=== PATIENT | male | born 1960 | race Caucasian/White ===

== ENCOUNTER 2017-06-06 09:26 | Outpatient (CLI) | payer OTHER | END 2017-06-06 09:27 | disposition home or self-care (01) | LOC: SC 09:26 | PROVIDERS: ATTEND Internal Medicine Pulmonary Disease | DX: R53.83 Other fatigue (principal); R06.83 Snoring; G47.8 Other sleep disorders | CPT/HCPCS: 99203; 99212 ==

== ENCOUNTER 2017-08-12 20:40 | Outpatient (CLI) | payer OTHER | END 2017-08-12 20:41 | disposition home or self-care (01) | LOC: SC 20:40 | PROVIDERS: ATTEND Internal Medicine Pulmonary Disease | DX: G47.33 Obstructive sleep apnea (adult) (pediatric) (principal); G47.61 Periodic limb movement disorder | CPT/HCPCS: 95810 ==

== ENCOUNTER 2017-09-07 09:00 | Outpatient (CLI) | payer OTHER | END 2017-09-07 09:01 | disposition home or self-care (01) | LOC: SC 09:00 | PROVIDERS: ATTEND Nurse Practitioner Family | DX: G47.33 Obstructive sleep apnea (adult) (pediatric) (principal); G47.61 Periodic limb movement disorder | CPT/HCPCS: 99212; 99214 ==

== ENCOUNTER 2017-10-24 10:13 | Outpatient (CLI) | payer OTHER | END 2017-10-24 10:14 | disposition home or self-care (01) | LOC: SC 10:13 | PROVIDERS: ATTEND Nurse Practitioner Family | DX: G47.33 Obstructive sleep apnea (adult) (pediatric) (principal) | CPT/HCPCS: 99212; 99214 ==

== ENCOUNTER 2017-11-23 08:42 | Outpatient (CLI) | payer OTHER | END 2017-11-23 08:43 | disposition home or self-care (01) | LOC: SC 08:42 | PROVIDERS: ATTEND Nurse Practitioner Family | DX: G47.33 Obstructive sleep apnea (adult) (pediatric) (principal); K21.9 Gastro-esophageal reflux disease without esophagitis; E11.9 Type 2 diabetes mellitus without complications | CPT/HCPCS: 99212; 99214 ==

== ENCOUNTER 2018-02-22 08:46 | Outpatient (CLI) | payer OTHER | END 2018-02-22 08:47 | disposition home or self-care (01) | LOC: SC 08:46 | PROVIDERS: ATTEND Nurse Practitioner Family | DX: G47.33 Obstructive sleep apnea (adult) (pediatric) (principal) | CPT/HCPCS: 99212; 99213 ==

== ENCOUNTER 2018-05-08 16:12 | Emergency (ER) | payer OTHER ==
[2018-05-08 16:46] LABS: BASOPHILS # (AUTO) 0.1 10^3/uL (0.0-0.1); BASOPHILS % (AUTO) 0.9 %; EOSINOPHILS # (AUTO) 0.1 10^3/uL (0.0-0.7); EOSINOPHILS % (AUTO) 1.5 %; LYMPHOCYTES # (AUTO) 2.6 10^3/uL (1.5-3.5); LYMPHOCYTES % (AUTO) 38.6 %; MEAN CORPUSCULAR HEMOGLOBIN 30.5 pg (27.0-31.0); MEAN CORPUSCULAR HGB CONC 34.3 g/dL (32.0-36.0); MEAN CORPUSCULAR VOLUME 88.7 fL (80.0-94.0); MEAN PLATELET VOLUME 9.7 fL (7.4-11.4); MONOCYTES # (AUTO) 0.6 10^3/uL (0.0-1.0); NEUTROPHILS # (AUTO) 3.4 10^3/uL (1.5-6.6); PLT - PLATELET COUNT 151 10^3/uL (130-450); RED BLOOD COUNT 4.94 10^6/uL (4.70-6.10); WHITE BLOOD COUNT 6.8 x10^3/uL (4.8-10.8)
[2018-05-08 16:58] LABS: ALBUMIN 4.6 g/dL (3.2-5.5); ALBUMIN/GLOBULIN RATIO 1.5 (1.0-2.2); BILIRUBIN,TOTAL 1.2 mg/dL (0.2-1.0); CALCIUM 8.9 mg/dL (8.5-10.3); CREATININE 0.9 mg/dL (0.6-1.2); TOTAL PROTEIN 7.6 g/dL (6.7-8.2)
--- NOTE | 2018-05-08 17:29 | ED Physician Documentation ---
PD HPI ABD PAIN - Stated complaint Stated Complaint: ABD PX - Chief complaint Chief Complaint: Abd Pain - History obtained from History obtained from: Patient - History of Present Illness Timing - onset: How many days ago (2) Timing - duration: Days (He has had some initially right flank pain a couple of days ago intermittently with abrupt worsening today that now radiates to the right lower abdomen and right testicle. He denies any swelling of the testicle. He is having nausea with some vomiting. He denies any diarrhea. He has not had any prior similar episodes. He denies injury.) Timing - details: Abrupt onset (today abruptly worse, with some intermittent right flank pain for couple days.) Quality: Aching, Sharp, Pain Location: RLQ Radiation: Other (right testicle), Right flank Improved by: No: Eating, Vomiting Worsened by: No: Eating, Moving, Position Associated symptoms: Nausea, Vomiting. No: Fever, Diarrhea, Constipation, Dysuria, Hematuria, Chest pain, Near syncope / syncope Similar symptoms before: Has not had sx before Recently seen: Not recently seen Review of Systems Constitutional: denies: Fever, Chills, Myalgias Nose: denies: Rhinorrhea / runny nose, Congestion Throat: denies: Sore throat Cardiac: denies: Chest pain / pressure Respiratory: denies: Cough GI: reports: Abdominal Pain, Nausea, Vomiting. denies: Constipation, Diarrhea, Bloody / black stool : denies: Dysuria, Frequency Skin: denies: Rash, Lesions Neurologic: denies: Generalized weakness, Focal weakness, Numbness, Near syncope, Altered mental status PD PAST MEDICAL HISTORY - Past Medical History Cardiovascular: None, Hypertension, High cholesterol Endocrine/Autoimmune: Type 2 diabetes GI: GERD Psych: None Musculoskeletal: None - Past Surgical History Past Surgical History: Yes General: Cholecystectomy Ortho: Other - Present Medications Home Medications: Ambulatory Orders Medication Instructions Recorded Confirmed Aspirin [Aspir 81] 81 mg PO DAILY 03/03/14 04/23/15 Atorvastatin Calcium 40 mg PO QPM 04/22/15 04/23/15 Esomeprazole Magnesium 40 mg PO QDAC 04/23/15 04/23/15 Lisinopril 20 mg PO DAILY 04/23/15 04/23/15 Loratadine 10 mg PO DAILY 04/23/15 04/23/15 Naproxen 375 mg PO BID #20 tablet 05/08/18 Ondansetron Odt [Zofran] 4 mg TL Q6H PRN #10 tablet 05/08/18 Oxycodone HCl/Acetaminophen 1 - 2 each PO Q6H PRN #14 tablet 05/08/18 [Percocet 5-325 mg Tablet] - Allergies Allergies/Adverse Reactions: Allergies Allergy/AdvReac Type Severity Reaction Status Date / Time No Known Drug Allergies Allergy Verified 05/08/18 16:27 - Social History Does the pt smoke?: No Smoking Status: Former smoker Does the pt drink ETOH?: Yes Does the pt have substance abuse?: No - POLST Patient has POLST: No PD ED PE NORMAL - Vitals Vital signs reviewed: Yes - General General: Alert and oriented X 3, Well developed/nourished, Other (appears uncomfortable, slightly pale. Not finding comfortable position. ) - Neck Neck: Supple, no meningeal sign, No adenopathy - Cardiac Cardiac: RRR, No murmur - Respiratory Respiratory: Clear bilaterally - Abdomen Abdomen: Normal bowel sounds, Soft, Non distended, No organomegaly, Other (some tenderness RLQ without guarding nor percussion, nor rebound tenderness. Some moderate right CVA tenderness. ) - Male Male : Other (right testicle has some tenderness, but no noted swelling of scrotum, nor inguinal hernia. ) - Rectal Rectal: Deferred - Derm Derm: Warm and dry. No: Normal color (pale) - Extremities Extremities: Normal ROM s pain, No edema, No calf tenderness / cord - Neuro Neuro: Alert and oriented X 3, No motor deficit, Normal speech Results - Vitals Vitals: Oxygen O2 Source Room air - Labs Labs: Laboratory Tests 05/08/18 05/08/18 05/08/18 16:40 16:40 17:30 WBC 6.8 RBC 4.94 Hgb 15.0 Hct 43.8 MCV 88.7 MCH 30.5 MCHC 34.3 RDW 13.0 Plt Count 151 MPV 9.7 Neut # (Auto) 3.4 Lymph # (Auto) 2.6 [place] # (Auto) 0.6 Eos # (Auto) 0.1 Baso # (Auto) 0.1 Absolute Nucleated RBC 0.00 Nucleated RBC % 0.1 Sodium 138 Potassium 3.5 Chloride 102 Carbon Dioxide 26 Anion Gap 10.0 BUN 15 Creatinine 0.9 Estimated GFR (MDRD) 87 L Glucose 156 H Calcium 8.9 Total Bilirubin 1.2 H AST 27 ALT 47 Alkaline Phosphatase 101 Total Protein 7.6 Albumin 4.6 Globulin 3.0 Albumin/Globulin Ratio 1.5 Lipase 48 Urine Color YELLOW Urine Clarity CLEAR Urine pH 5.5 Ur Specific [place] >=1.030 H Urine Protein NEGATIVE Urine Glucose (UA) NEGATIVE Urine Ketones NEGATIVE Urine Occult Blood LARGE H Urine Nitrite NEGATIVE Urine Bilirubin NEGATIVE Urine Urobilinogen 0.2 (NORMAL) Ur Leukocyte Esterase NEGATIVE Urine RBC TNTC H Urine WBC 0-3 Ur Squamous Epith Cells NONE SEEN Urine Bacteria None Seen Ur Microscopic Review INDICATED Urine Culture Comments NOT INDICATED - Rads (name of study) KUB CT Radiology: Prelim report reviewed (small stone distal ureter or more likely just at top of bladder - passing/just passed. ), EMP read contemporaneously PD MEDICAL DECISION MAKING - ED course Complexity details: re-evaluated patient (he is feeling much better here with just mild waves of pain still. CT showing stone likely into upper bladder, so looks to be passed/about to fully pass. ), considered differential, d/w patient Departure - Departure Disposition: Home, Self Care Clinical Impression: Ureterolithiasis Abdominal pain Qualifiers: Abdominal location: right lower quadrant Qualified Code(s): R10.31 - Right lower quadrant pain Condition: Stable Record reviewed to determine appropriate education?: Yes Instructions: ED Stone Renal W Colic Follow-Up: KRISTA CRUZ [Primary Care Provider] - Prescriptions: Naproxen 375 mg PO BID #20 tablet Ondansetron Odt [Zofran] 4 mg TL Q6H PRN #10 tablet PRN Reason: Nausea / Vomiting Oxycodone HCl/Acetaminophen [Percocet 5-325 mg Tablet] 1 - 2 each PO Q6H PRN #14 tablet PRN Reason: pain Comments: The CT scan showed the stone either at the very end of the ureter or in the top of the bladder already passed. That was the impression of the radiologist as well. He should be feeling better with just some mild pains from the inflammation and spasming still. This should decrease and improve overnight. Naproxen or ibuprofen twice daily for the next several days. Ondansetron if needed for nausea. Add pain medicine if needed. Recheck if not improved over the next couple of days and return sooner if worse again. Discharge Date/Time: 05/08/18 19:45
[2018-05-08 17:35] LABS: BILIRUBIN,URINE NEGATIVE (NEGATIVE); GLUCOSE, URINE (UA) NEGATIVE (NEGATIVE); KETONES,URINE (UA) NEGATIVE (NEGATIVE); LEUKOCYTE ESTERASE, URINE NEGATIVE (NEGATIVE); NITRITE,URINE NEGATIVE (NEGATIVE); OCCULT BLOOD,URINE LARGE (NEGATIVE); PH,URINE 5.5 PH (5.0-7.5); PROTEIN,URINE NEGATIVE (NEGATIVE); UROBILINOGEN,URINE 0.2 (NORMAL) E.U./dL (NORMAL)
[2018-05-08] MEDS ORDERED: ONDANSETRON 4 MG/2 ML VIAL IVP STA (17:40)
[2018-05-08] MEDS ORDERED: KETOROLAC 60 MG/2 ML VIAL IVP STA (17:40)
[2018-05-08] MEDS ORDERED: SODIUM CHLORIDE 0.9% 1,000 ML IV ONE (17:40)
[2018-05-08] MEDS ORDERED: MORPHINE 10 MG/ML VIAL IVP STA ×2 (17:40→19:05)
[2018-05-08 17:42] LABS: CLARITY,URINE CLEAR (CLEAR)
[2018-05-08 17:43] LABS: BACTERIA,URINE None Seen /HPF (None Seen); RBC,URINE TNTC /HPF (0-5); SQUAMOUS EPITHELIAL CELL,UR NONE SEEN (<= Few)
--- NOTE | 2018-05-08 18:48 | CT Report ---
Reason: right abd/flank pain 2 days, worse today Procedure Date: 05/08/2018 Accession Number: [id number] / [id number] Procedure: CT - KUB CPT Code: FULL RESULT: EXAM: CT ABDOMEN AND PELVIS (CT KUB) EXAM DATE: 05/08/2018 06:30 PM. CLINICAL HISTORY: Right abd/flank pain 2 days, worse today. COMPARISONS: ABDOMEN/PELVIS W/O 04/22/2015 8:00 AM. TECHNIQUE: Routine axial helical CT imaging was performed through the abdomen and pelvis without IV contrast. Reconstructions: Coronal and sagittal. In accordance with CT protocol optimization, one or more of the following dose reduction techniques were utilized for this exam: automated exposure control, adjustment of mA and/or KV based on patient size, or use of iterative reconstructive technique. FINDINGS: Lung Bases: Unremarkable. Right Kidney/Ureter: Moderate right hydronephrosis and hydroureter. 4 mm calculus in the posterior right side of the urinary bladder, which may be in the right ureterovesicular junction or recently passed. Left Kidney/Ureter: No stones, hydronephrosis, or hydroureter. No perinephric fat stranding. Other Solid Organs: Noncontrast images of the solid organs are grossly unremarkable. Gallbladder/Bile Ducts: Postoperative changes of cholecystectomy. No biliary dilatation. Peritoneal Cavity: No free fluid, free air or shena adenopathy. Bowel is grossly unremarkable. The appendix is normal. Pelvic Organs: 4 mm calculus, which may be in the urinary bladder or the right ureterovesicular function. Vasculature: Unremarkable. Other: None. IMPRESSION: Moderate right hydronephrosis and hydroureter, with a 4 mm calculus either at the right ureterovesicular junction or recently passed into the urinary bladder. No upper tract calculi are seen. RADIA
[2018-05-08] MEDS ORDERED: DEXAMETHASONE 10 MG/ML VIAL IVP STA (19:05)
[2018-05-08 19:18] VITALS: BP 118/81
== END 2018-05-08 19:45 | disposition home or self-care (01) ==
LOC: ED 16:12
DX: N20.1 Calculus of ureter (principal); I10 Essential (primary) hypertension; E78.00 Pure hypercholesterolemia, unspecified; E11.9 Type 2 diabetes mellitus without complications; Z79.82 Long term (current) use of aspirin; Z87.891 Personal history of nicotine dependence
CPT/HCPCS: 36415; 74176; 80053; 81001; 81003; 83690; 85025; 87086; 96361; 96374; 96375; 99283; 99284

== ENCOUNTER 2019-06-15 07:16 | Emergency (ER) | payer OTHER ==
[2019-06-15] MEDS ORDERED: oxyCODONE 5 MG TABLET PO STA (07:41)
[2019-06-15] MEDS ORDERED: CYCLOBENZAPRINE 10 MG TABLET PO STA (07:41)
[2019-06-15] MEDS ORDERED: CHERRY SYRUP 10 ML UDC PO ONE (07:41)
[2019-06-15] MEDS ORDERED: DEXAMETHASONE 10 MG/ML VIAL PO STA (07:41)
--- NOTE | 2019-06-15 07:44 | ED Physician Documentation ---
PD HPI BACK PAIN - Stated complaint Stated Complaint: BACK PX - Chief complaint Chief Complaint: Ext Problem - History obtained from History obtained from: Patient - History of Present Illness Timing - onset: How many days ago (3-4) Timing - duration: Days (3-4) Timing - details: Gradual onset Pain level max: 0 Pain level now: 0 Location: Lower, Right, Left Quality: Pain, Spasm, Similar to prior episodes Associated symptoms: No: Fever, Weakness, Numbness, Incontinent of urine, Unable to urinate, Hematuria, Incontinent of stool Improves with: Rest Worsened by: Movement, Lifting Contributing factors: Lifting (started after moving a treadmill) Similar symptoms before: Other (has had issues on and off for years. states flex eril normally helps) Recently seen: Not recently seen Review of Systems Constitutional: denies: Fever, Chills Cardiac: denies: Chest pain / pressure Respiratory: denies: Cough GI: denies: Abdominal Pain, Nausea, Vomiting Skin: denies: Rash Musculoskeletal: denies: Neck pain Neurologic: denies: Headache PD PAST MEDICAL HISTORY - Past Medical History Cardiovascular: None, Hypertension, High cholesterol Endocrine/Autoimmune: Type 2 diabetes GI: GERD Psych: None Musculoskeletal: None - Past Surgical History Past Surgical History: Yes General: Cholecystectomy Ortho: Other - Present Medications Home Medications: Ambulatory Orders Medication Instructions Recorded Confirmed Aspirin [Aspir 81] 81 mg PO DAILY 03/03/14 04/23/15 Atorvastatin Calcium 40 mg PO QPM 04/22/15 04/23/15 Lisinopril 20 mg PO DAILY 04/23/15 04/23/15 Loratadine 10 mg PO DAILY 04/23/15 04/23/15 Cyclobenzaprine [Flexeril] 10 mg PO TID PRN #20 tablet 06/15/19 Meloxicam 7.5 mg PO 06/15/19 Metformin HCl [Metformin HCl ER] 06/15/19 Omeprazole 06/15/19 Oxycodone HCl/Acetaminophen 1 - 2 each PO Q6H PRN #10 tablet 06/15/19 [Percocet 5-325 mg Tablet] - Allergies Allergies/Adverse Reactions: Allergies Allergy/AdvReac Type Severity Reaction Status Date / Time No Known Drug Allergies Allergy Verified 06/15/19 07:27 - Social History Does the pt smoke?: No Smoking Status: Former smoker Does the pt drink ETOH?: Yes Does the pt have substance abuse?: No - Immunizations Immunizations are current?: Yes - POLST Patient has POLST: No PD ED PE NORMAL - Vitals Vital signs reviewed: Yes - General General: Alert and oriented X 3, No acute distress - HEENT HEENT: Moist mucous membranes - Neck Neck: Supple, no meningeal sign - Cardiac Cardiac: Strong equal pulses - Respiratory Respiratory: No respiratory distress, Clear bilaterally - Abdomen Abdomen: Soft, Non tender, Non distended - Back Back: No spinal TTP, Other (Paraspinal spasm of the lumbar. No midline tenderness to palpation or percussion.) - Derm Derm: Warm and dry - Extremities Extremities: Other (Normal bilateral lower extremity patellar and ankle jerk reflexes. Normal great toe extension bilaterally. no saddle anesthesia) - Neuro Neuro: Alert and oriented X 3, No motor deficit, No sensory deficit Results - Vitals Vitals: Vital Signs - 24 hr 06/15/19 06/15/19 07:23 09:11 Temperature 36.7 C Heart Rate 77 67 Respiratory 18 18 Rate Blood Pressure 190/90 H 123/82 H O2 Saturation 99 98 Oxygen O2 Source Room air PD MEDICAL DECISION MAKING - ED course Complexity details: re-evaluated patient, considered differential (No cauda equina, no spinal epidural abscess, no fracture, no aortic dissection or evidence of aneursym rupture), d/w patient, d/w family ED course: Patient with back spasm. Symptoms improved in the emergency department. No evidence of fracture, epidural abscess. No evidence of cauda equina. We will continue supportive care and have him follow-up with his doctor. Patient counseled regarding signs and symptoms for which I believe and urgent re- evaluation would be necessary. Patient with good understanding of and agreement to plan and is comfortable going home at this time This document was made in part using voice recognition software. While efforts are made to proofread this document, sound alike and grammatical errors may occur. Departure - Departure Disposition: 01 Home, Self Care Clinical Impression: Back spasm Condition: Good Instructions: ED Spasm Back No Trauma Follow-Up: your,doctor in 1 week [Other] Prescriptions: Cyclobenzaprine [Flexeril] 10 mg PO TID PRN #20 tablet PRN Reason: Spasms Oxycodone HCl/Acetaminophen [Percocet 5-325 mg Tablet] 1 - 2 each PO Q6H PRN #10 tablet PRN Reason: pain Comments: Return if you worsen. Follow up with your doctor for further care. This should improve over the next few days. Do not drink alcohol or drive while on narcotic pain medicine. Note that many narcotic pain relievers also contain tylenol/acetaminophen. Please ensure that your total dose of acetaminophen from all sources does not exceed 3 grams (3000mg) per day. You may constipated on this medication, take a stool softener such as "Colace" twice a day while you are on it. Also recommend a [id number] laxative such as senna or MiraLAX any day that you do not have a bowel movement. If you received narcotic pain medication in the emergency department, do not drive or operate machinery for the next 24 hours. Forms: Activity restrictions Discharge Date/Time: 06/15/19 09:15
[2019-06-15] MEDS ORDERED: diazePAM INJ 5 MG/ML SYRINGE IM STA (08:31)
[2019-06-15] MEDS ORDERED: ONDANSETRON ODT 4 MG TABLET TL STA (08:32)
[2019-06-15 09:12] VITALS: BP 123/82
== END 2019-06-15 09:15 | disposition home or self-care (01) ==
LOC: ED 07:16
DX: M62.830 Muscle spasm of back (principal); I10 Essential (primary) hypertension; E11.9 Type 2 diabetes mellitus without complications; Z79.84 Long term (current) use of oral hypoglycemic drugs; Z87.891 Personal history of nicotine dependence
CPT/HCPCS: 96372; 99283; 99284; A9270; Q0162

== ENCOUNTER 2020-05-06 08:21 | Emergency (ER) | payer OTHER ==
[2020-05-06 09:23] LABS: BASOPHILS % (AUTO) 0.4 %; EOSINOPHILS # (AUTO) 0.2 10^3/uL (0.0-0.7); HGB - HEMOGLOBIN 16.3 g/dL (14.0-18.0); LYMPHOCYTES % (AUTO) 24.6 %; MEAN CORPUSCULAR HEMOGLOBIN 30.8 pg (27.0-31.0); MEAN CORPUSCULAR HGB CONC 34.2 g/dL (32.0-36.0); MEAN PLATELET VOLUME 11.6 fL (7.4-11.4); MONOCYTES # (AUTO) 0.8 10^3/uL (0.0-1.0); MONOCYTES % (AUTO) 9.6 %; NEUTROPHILS # (AUTO) 5.1 10^3/uL (1.5-6.6); NEUTROPHILS % (AUTO) 63.2 %; PLT - PLATELET COUNT 152 10^3/uL (130-450); RED BLOOD COUNT 5.29 10^6/uL (4.70-6.10); RED CELL DISTRIBUTION WIDTH 12.3 % (12.0-15.0); WHITE BLOOD COUNT 8.1 x10^3/uL (4.8-10.8)
[2020-05-06 09:39] LABS: BILIRUBIN,URINE NEGATIVE (NEGATIVE); CLARITY,URINE CLEAR (CLEAR); GLUCOSE, URINE (UA) NEGATIVE (NEGATIVE); KETONES,URINE (UA) NEGATIVE (NEGATIVE); LEUKOCYTE ESTERASE, URINE NEGATIVE (NEGATIVE); NITRITE,URINE NEGATIVE (NEGATIVE); OCCULT BLOOD,URINE NEGATIVE (NEGATIVE); PROTEIN,URINE NEGATIVE (NEGATIVE); UROBILINOGEN,URINE 0.2 (NORMAL) E.U./dL (NORMAL)
[2020-05-06 09:39] LABS: ALBUMIN 4.2 g/dL (3.2-5.5); ALBUMIN/GLOBULIN RATIO 1.4 (1.0-2.2); BILIRUBIN,TOTAL 1.2 mg/dL (0.2-1.0); CALCIUM 9.3 mg/dL (8.5-10.3); CREATININE 0.9 mg/dL (0.6-1.2); TOTAL PROTEIN 7.2 g/dL (6.7-8.2)
[2020-05-06] MEDS ORDERED: HYDROmorphone 1 MG/ML CARPUJECT IVP STA ×2 (11:09→13:01)
[2020-05-06] MEDS ORDERED: KETOROLAC 30 MG/ML VIAL IVP STA (11:09)
--- NOTE | 2020-05-06 11:12 | ED Physician Documentation ---
History of Present Illness - Stated complaint Stated Complaint: LOWER BACK PX - Chief complaint Chief Complaint: Back Pain - History obtained from History obtained from: Patient - Additonal information Additional information: Pt comes to the emergency department complaining of low back pain that started spontaneously 2 days ago. 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 The patient states that he has not had any fevers or chills. No abdominal pain. No blood in his urine or dysuria. The patient states he began to notice that something "did not feel right" when he woke up from sleep his sleep on Tuesday morning. He had gone to bed the night before feeling fine. He states that the pain steadily increased and that he has tried taking ibuprofen, Tylenol, and muscle relaxers at home with no help or improvement. Patient denies any direct injury. No heavy lifting or other heavy work. No history of back issues. He has had kidney stones before. No other complaints at this time. Review of Systems Ten Systems: 10 systems reviewed and negative Constitutional: reports: Reviewed and negative Eyes: reports: Reviewed and negative Ears: reports: Reviewed and negative Nose: reports: Reviewed and negative Throat: reports: Reviewed and negative Cardiac: reports: Reviewed and negative Respiratory: reports: Reviewed and negative GI: reports: Reviewed and negative : reports: Reviewed and negative Skin: reports: Reviewed and negative Musculoskeletal: reports: Back pain Neurologic: reports: Other (No loss of bowel or bladder control). denies: Focal weakness, Numbness Psychiatric: reports: Reviewed and negative Endocrine: reports: Reviewed and negative Immunocompromised: reports: Reviewed and negative PD PAST MEDICAL HISTORY - Past Medical History Cardiovascular: None, Hypertension, High cholesterol Endocrine/Autoimmune: Type 2 diabetes GI: GERD Psych: None Musculoskeletal: None - Past Surgical History Past Surgical History: Yes General: Cholecystectomy Ortho: Other - Present Medications Home Medications: Ambulatory Orders Medication Instructions Recorded Confirmed Aspirin [Aspir 81] 81 mg PO DAILY 03/03/14 04/23/15 Atorvastatin Calcium 40 mg PO QPM 04/22/15 04/23/15 Lisinopril 20 mg PO DAILY 04/23/15 04/23/15 Loratadine 10 mg PO DAILY 04/23/15 04/23/15 Cyclobenzaprine [Flexeril] 10 mg PO TID PRN #20 tablet 06/15/19 Meloxicam 7.5 mg PO 06/15/19 Metformin HCl [Metformin HCl ER] 06/15/19 Omeprazole 06/15/19 Oxycodone HCl/Acetaminophen 1 - 2 each PO Q6H PRN #10 tablet 06/15/19 [Percocet 5-325 mg Tablet] HYDROcod/ACETAM 5/325 [[place] 5/325] 1 - 2 ea PO Q4HR PRN #15 tablet 05/06/20 - Allergies Allergies/Adverse Reactions: Allergies Allergy/AdvReac Type Severity Reaction Status Date / Time No Known Drug Allergies Allergy Verified 05/06/20 09:00 - Social History Does the pt smoke?: No Smoking Status: Former smoker Does the pt drink ETOH?: Yes ETOH Use: Wine, Beer Does the pt have substance abuse?: No - Immunizations Immunizations are current?: Yes - POLST Patient has POLST: No PD ED PE NORMAL - Vitals Vital signs reviewed: Yes - General General: Alert and oriented X 3, No acute distress, Other (Pt appears generally comfortable when not moving.) - HEENT HEENT: Atraumatic, PERRL, EOMI, Moist mucous membranes - Neck Neck: Supple, no meningeal sign, No bony TTP - Cardiac Cardiac: RRR, No murmur, Strong equal pulses - Respiratory Respiratory: No respiratory distress, Clear bilaterally - Abdomen Abdomen: Soft, Non tender, Non distended - Back Back: No CVA TTP, No spinal TTP, Other (PT is able to move his back (change p osition, sit up for exam, etc), but exhibits slow movement and pain with the movement.) - Derm Derm: Normal color, Warm and dry, No rash - Extremities Extremities: No deformity, No edema, No calf tenderness / cord - Neuro Neuro: Alert and oriented X 3, entry level buyer 2-12 intact, No motor deficit, No sensory deficit, Normal speech - Psych Psych: Normal mood, Normal affect Results - Vitals Vitals: Vital Signs - 24 hr 05/06/20 05/06/20 05/06/20 08:52 09:28 10:47 Temperature 36.9 C 36.4 C L Heart Rate 83 83 71 Respiratory 18 16 18 Rate Blood Pressure 132/90 H 131/88 H 141/109 H O2 Saturation 99 97 97 05/06/20 13:08 Temperature 36.4 C L Heart Rate 78 Respiratory 16 Rate Blood Pressure 133/82 H O2 Saturation 96 Oxygen O2 Source Room air - Labs Labs: Laboratory Tests 05/06/20 05/06/20 05/06/20 09:17 09:17 09:30 WBC 8.1 RBC 5.29 Hgb 16.3 Hct 47.6 MCV 90.0 MCH 30.8 MCHC 34.2 RDW 12.3 Plt Count 152 MPV 11.6 H Neut # (Auto) 5.1 Lymph # (Auto) 2.0 [place] # (Auto) 0.8 Eos # (Auto) 0.2 Baso # (Auto) 0.0 Absolute Nucleated RBC 0.00 Nucleated RBC % 0.0 Sodium 138 Potassium 3.8 Chloride 101 Carbon Dioxide 28 Anion Gap 9.0 BUN 16 Creatinine 0.9 Estimated GFR (MDRD) 86 L Glucose 153 H Calcium 9.3 Total Bilirubin 1.2 H AST 25 ALT 43 Alkaline Phosphatase 93 Total Protein 7.2 Albumin 4.2 Globulin 3.0 Albumin/Globulin Ratio 1.4 Lipase 62 H Urine Color YELLOW Urine Clarity CLEAR Urine pH 6.0 Ur Specific [place] 1.020 Urine Protein NEGATIVE Urine Glucose (UA) NEGATIVE Urine Ketones NEGATIVE Urine Occult Blood NEGATIVE Urine Nitrite NEGATIVE Urine Bilirubin NEGATIVE Urine Urobilinogen 0.2 (NORMAL) Ur Leukocyte Esterase NEGATIVE Ur Microscopic Review NOT INDICATED Urine Culture Comments NOT INDICATED - Rads (name of study) CT abd/pelvis Radiology: Final report received, EMP read indepedently, See rad report (neg) PD MEDICAL DECISION MAKING - ED course Complexity details: reviewed results, re-evaluated patient, considered differential, d/w patient ED course: PT was treated symptomatically with Toradol and Dilaudid. He had a history of stones, and onset of pain without trigger, so he was worked up with labs and CT. These were all negative. The pt was feeling better after symptomatic intervention, and we discussed taking a couple of days off work to allow his back to settle down. We have discussed symptomatic management at home, as well as the need to see his PCP and discuss MRI if his pain is not significantly improved after the next couple weeks. Departure - Departure Disposition: 01 Home, Self Care Clinical Impression: Acute lumbar myofascial strain Qualifiers: Encounter type: initial encounter Qualified Code(s): S39.012A - Strain of muscle, fascia and tendon of lower back, initial encounter Condition: Stable Instructions: ED Low Back Pain Injury Prescriptions: HYDROcod/ACETAM 5/325 [[place] 5/325] 1 - 2 ea PO Q4HR PRN #15 tablet PRN Reason: Pain Comments: This, urinalysis, and CT scan all look very good. The mechanical nature of your pain indicates a musculoskeletal source as opposed to something coming from your deeper organs or structures. It is not clear exactly what has caused this, although it is not uncommon for people with physical jobs to have silent overuse injuries that suddenly flareup. Please take the pain medication as needed. You have been given a note to have the rest of this week off of work, unless she is feeling better. You may rest but should also make sure to get up and move around and do some stretching. You will most likely be able to stretch better if heat and massage are applied first. If you are not feeling any better in the next couple of weeks, you will need to follow-up with your primary care physician to discuss having an MRI of your low spine done. If you lose control of your bowels or bladder, you will need to return to the emergency department immediately. Forms: Activity restrictions Discharge Date/Time: 05/06/20 13:23
[2020-05-06] MEDS ORDERED: IOVERSOL 320 100 ML VIAL IVP ONE ×2 (11:26→12:57)
--- NOTE | 2020-05-06 12:20 | CT Report ---
PROCEDURE: Abdomen/Pelvis W INDICATIONS: back pain CONTRAST: IV CONTRAST: Optiray 320 ml: 100 PO CONTRAST: *NO PO CONTRAST TECHNIQUE: After the administration of intravenous contrast, 5 mm thick sections acquired from the diaphragms to the symphysis. 5 mm thick coronal and sagittal reformats were acquired. For radiation dose reducti on, the following was used: automated exposure control, adjustment of mA and/or kV according to renetta ent size. COMPARISON: 05/08/2018 CT abdomen and pelvis FINDINGS: Image quality: Excellent. ABDOMEN: Lung bases: Nonspecific groundglass airspace opacity in the posterior right lung base along with min imal posterior dependent atelectasis bilaterally. Solid organs: Diffuse hepatic steatosis. Spleen is unremarkable. Gallbladder and has been removed. Bi liary system is non dilated. Pancreas enhances normally. No adrenal nodules. Kidneys demonstrate n ormal size and enhancement, without hydronephrosis. Peritoneum and bowel: Bowel loops demonstrate normal wall thickness and caliber. No free fluid or a ir. Nodes and vessels: No retroperitoneal or mesenteric adenopathy by size criteria. Aorta and inferior vena cava are normal in size. Miscellaneous: No ventral hernias. PELVIS: Genitourinary: Bladder wall thickness is normal. Miscellaneous: No inguinal hernias or adenopathy. Bones: No suspicious bony lesions. No vertebral body compression fractures. IMPRESSION: No acute abnormality or finding to explain back pain. Nonspecific groundglass opacity in the right lung base. This could be atelectatic, however, infection would appear similar and will need clinical exclusion. Reviewed by: Charanjit Ramirez MD on 05/06/2020 12:19 PM PST Approved by: Charanjit Ramirez MD on 05/06/2020 12:19 PM PST Station ID: [id number]
[2020-05-06 13:10] VITALS: BP 133/82
== END 2020-05-06 13:23 | disposition home or self-care (01) ==
LOC: ED 08:21
DX: S39.012A Strain of muscle, fascia and tendon of lower back, initial encounter (principal); X50.3XXA Overexertion from repetitive movements, initial encounter; Y99.0 Civilian activity done for income or pay; Z87.442 Personal history of urinary calculi; I10 Essential (primary) hypertension; E11.9 Type 2 diabetes mellitus without complications; Z79.84 Long term (current) use of oral hypoglycemic drugs; Z79.82 Long term (current) use of aspirin; Z87.891 Personal history of nicotine dependence
CPT/HCPCS: 36415; 74177; 80053; 81003; 83690; 85025; 96374; 96376; 99284; J1170; Q9967; 81001; 87086

== ENCOUNTER 2020-05-07 09:17 | Emergency (ER) | payer OTHER ==
[2020-05-07] MEDS ORDERED: DEXAMETHASONE 10 MG/ML VIAL IVP STA (10:41)
[2020-05-07] MEDS ORDERED: KETOROLAC 30 MG/ML VIAL IVP STA (10:41)
[2020-05-07] MEDS ORDERED: SODIUM CHLORIDE 0.9% 1,000 ML IV STA ×2 (10:41→12:34)
--- NOTE | 2020-05-07 10:48 | ED Physician Documentation ---
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 He has been in to the ED yesterday and had appropriate imaging without findings. He indicates this morning the pain is worse. He did not peanut picker the script. He has reduced his fluid intake in order to not have to get up to the bathroom. Review of Systems Constitutional: denies: Fever Eyes: denies: Decreased vision Ears: denies: Ear pain Nose: denies: Congestion Throat: denies: Sore throat Cardiac: denies: Chest pain / pressure, Palpitations Respiratory: denies: Dyspnea, Cough GI: denies: Abdominal Pain, Abdominal Swelling, Nausea, Vomiting : denies: Dysuria, Frequency PD PAST MEDICAL HISTORY - Past Medical History Past Medical History: Yes Cardiovascular: None, Hypertension, High cholesterol Endocrine/Autoimmune: Type 2 diabetes GI: GERD Psych: None Musculoskeletal: None - Past Surgical History Past Surgical History: Yes General: Cholecystectomy Ortho: Other - Present Medications Home Medications: Ambulatory Orders Medication Instructions Recorded Confirmed Aspirin [Aspir 81] 81 mg PO DAILY 03/03/14 04/23/15 Atorvastatin Calcium 40 mg PO QPM 04/22/15 04/23/15 Lisinopril 20 mg PO DAILY 04/23/15 04/23/15 Loratadine 10 mg PO DAILY 04/23/15 04/23/15 Cyclobenzaprine [Flexeril] 10 mg PO TID PRN #20 tablet 06/15/19 Meloxicam 7.5 mg PO 06/15/19 Metformin HCl [Metformin HCl ER] 06/15/19 Omeprazole 06/15/19 Oxycodone HCl/Acetaminophen 1 - 2 each PO Q6H PRN #10 tablet 06/15/19 [Percocet 5-325 mg Tablet] HYDROcod/ACETAM 5/325 [[place] 5/325] 1 - 2 ea PO Q4HR PRN #15 tablet 05/06/20 Cyclobenzaprine [Flexeril] 10 mg PO TID PRN #20 tablet 05/07/20 - Allergies Allergies/Adverse Reactions: Allergies Allergy/AdvReac Type Severity Reaction Status Date / Time No Known Drug Allergies Allergy Verified 05/07/20 09:30 - Social History Does the pt smoke?: No Smoking Status: Never smoker Does the pt drink ETOH?: Yes Does the pt have substance abuse?: No - Immunizations Immunizations are current?: Yes - POLST Patient has POLST: No PD ED PE NORMAL - Vitals Vital signs reviewed: Yes (hypertensive ) - General General: Alert and oriented X 3, No acute distress, Well developed/nourished - HEENT HEENT: Atraumatic, PERRL, EOMI - Neck Neck: Supple, no meningeal sign, No bony TTP - Cardiac Cardiac: RRR, No murmur - Respiratory Respiratory: No respiratory distress, Clear bilaterally - Abdomen Abdomen: Normal bowel sounds, Soft, Non tender, Non distended, No organomegaly - Back Back: No CVA TTP, No spinal TTP, Other (There is tenderness to the left lower lumbar area at the site of the pain the patient is complaining of. ) - Derm Derm: Normal color, Warm and dry, No rash - Extremities Extremities: No deformity, No edema - Neuro Neuro: Alert and oriented X 3, treasury manager 2-12 intact, No motor deficit, No sensory deficit, Normal speech Eye Opening: Spontaneous Motor: Obeys Commands Verbal: Oriented GCS Score: 15 - Psych Psych: Normal mood, Normal affect Results - Vitals Vitals: Vital Signs - 24 hr 05/07/20 05/07/20 05/07/20 09:27 09:47 11:34 Temperature 36.8 C 37.1 C Heart Rate 91 89 79 Respiratory 17 18 18 Rate Blood Pressure 132/90 H 120/87 H 124/82 H O2 Saturation 96 96 96 05/07/20 05/07/20 05/07/20 13:04 13:30 14:19 Temperature 36.4 C L 36.1 C L Heart Rate 84 91 Respiratory 16 16 Rate Blood Pressure 123/79 129/83 H O2 Saturation 96 94 Oxygen O2 Source Room air - Labs Labs: Laboratory Tests 05/07/20 05/07/20 05/07/20 10:50 10:50 13:00 WBC 8.2 RBC 5.40 Hgb 16.6 Hct 48.8 MCV 90.4 MCH 30.7 MCHC 34.0 RDW 12.4 Plt Count 157 MPV 11.7 H Neut # (Auto) 5.3 Lymph # (Auto) 2.1 [place] # (Auto) 0.6 Eos # (Auto) 0.1 Baso # (Auto) 0.0 Absolute Nucleated RBC 0.00 Nucleated RBC % 0.0 Sodium 141 Potassium 3.9 Chloride 99 L Carbon Dioxide 27 Anion Gap 15.0 H BUN 17 Creatinine 0.9 Estimated GFR (MDRD) 86 L Glucose 135 H Calcium 9.5 Total Bilirubin 1.8 H AST 26 ALT 46 Alkaline Phosphatase 97 Total Protein 7.8 Albumin 4.5 Globulin 3.3 Albumin/Globulin Ratio 1.4 Lipase 56 H Urine Color YELLOW Urine Clarity CLEAR Urine pH 6.5 Ur Specific [place] 1.015 Urine Protein NEGATIVE Urine Glucose (UA) NEGATIVE Urine Ketones NEGATIVE Urine Occult Blood NEGATIVE Urine Nitrite NEGATIVE Urine Bilirubin NEGATIVE Urine Urobilinogen 0.2 (NORMAL) Ur Leukocyte Esterase NEGATIVE Ur Microscopic Review NOT INDICATED Urine Culture Comments NOT INDICATED Procedures - IVC sono (time) 1035 Bedside IVC sono: IVC measures (cm) (0.82), Dehydration (est 2 liter deficit) PD MEDICAL DECISION MAKING - ED course Complexity details: reviewed old records, reviewed results, re-evaluated patient, considered differential, d/w patient, d/w family ED course: 59-year-old male with lumbar muscle spasm has had poor pain relief and continues to have pain. He did not fill his prescription for his pain medication and has come back to the emergency department. We found today that he was a bit dehydrated he does have diabetes and I suspect this is the reason for his dehydration. He was administered saline 2 L and dexamethasone 10 mg as well as Toradol. He had improvement in his pain but not the dramatic improvement he had yesterday. He subsequently administered Dilaudid and Zofran and he has pain medication prescription from yesterday I will add in a muscle relaxant and asked him to discontinue the use of the heating pack. Departure - Departure Disposition: Home, Self Care Clinical Impression: Back spasm, Dehydration Instructions: ED Spasm Back No Trauma, ED Dehydration Follow-Up: JANEEN Rashid [Provider Group] Prescriptions: Cyclobenzaprine [Flexeril] 10 mg PO TID PRN #20 tablet PRN Reason: Spasms Discharge Date/Time: 05/07/20 14:30
[2020-05-07 11:04] LABS: BASOPHILS % (AUTO) 0.4 %; EOSINOPHILS # (AUTO) 0.1 10^3/uL (0.0-0.7); EOSINOPHILS % (AUTO) 1.3 %; HGB - HEMOGLOBIN 16.6 g/dL (14.0-18.0); LYMPHOCYTES # (AUTO) 2.1 10^3/uL (1.5-3.5); LYMPHOCYTES % (AUTO) 25.1 %; MEAN CORPUSCULAR HEMOGLOBIN 30.7 pg (27.0-31.0); MEAN CORPUSCULAR VOLUME 90.4 fL (80.0-94.0); MEAN PLATELET VOLUME 11.7 fL (7.4-11.4); MONOCYTES # (AUTO) 0.6 10^3/uL (0.0-1.0); MONOCYTES % (AUTO) 7.8 %; NEUTROPHILS # (AUTO) 5.3 10^3/uL (1.5-6.6); PLT - PLATELET COUNT 157 10^3/uL (130-450); RED CELL DISTRIBUTION WIDTH 12.4 % (12.0-15.0); WHITE BLOOD COUNT 8.2 x10^3/uL (4.8-10.8)
[2020-05-07 11:18] LABS: ALBUMIN 4.5 g/dL (3.2-5.5); ALBUMIN/GLOBULIN RATIO 1.4 (1.0-2.2); BILIRUBIN,TOTAL 1.8 mg/dL (0.2-1.0); CALCIUM 9.5 mg/dL (8.5-10.3); CREATININE 0.9 mg/dL (0.6-1.2); TOTAL PROTEIN 7.8 g/dL (6.7-8.2)
[2020-05-07] MEDS ORDERED: HYDROmorphone 1 MG/ML CARPUJECT IVP STA (13:00)
[2020-05-07] MEDS ORDERED: ONDANSETRON 4 MG/2 ML VIAL IVP STA (13:00)
[2020-05-07 13:15] LABS: BILIRUBIN,URINE NEGATIVE (NEGATIVE); GLUCOSE, URINE (UA) NEGATIVE (NEGATIVE); KETONES,URINE (UA) NEGATIVE (NEGATIVE); LEUKOCYTE ESTERASE, URINE NEGATIVE (NEGATIVE); NITRITE,URINE NEGATIVE (NEGATIVE); OCCULT BLOOD,URINE NEGATIVE (NEGATIVE); PH,URINE 6.5 PH (5.0-7.5); PROTEIN,URINE NEGATIVE (NEGATIVE); UROBILINOGEN,URINE 0.2 (NORMAL) E.U./dL (NORMAL)
[2020-05-07 13:22] LABS: CLARITY,URINE CLEAR (CLEAR)
[2020-05-07 14:20] VITALS: BP 129/83
== END 2020-05-07 14:30 | disposition home or self-care (01) ==
LOC: ED 09:17
DX: M62.830 Muscle spasm of back (principal); M54.5 Low back pain; E86.0 Dehydration; E11.9 Type 2 diabetes mellitus without complications; Z79.84 Long term (current) use of oral hypoglycemic drugs; I10 Essential (primary) hypertension; Z79.82 Long term (current) use of aspirin
CPT/HCPCS: 36415; 80053; 81003; 83690; 85025; 96361; 96374; 96375; 99284; 99285; J1170; 81001; 87086

== ENCOUNTER 2021-05-31 07:45 | Outpatient (CLI) | payer OTHER | END 2021-05-31 07:46 | disposition critical access hospital (66) | LOC: EMS 07:45 | DX: M54.50 Low back pain, unspecified (principal); R53.1 Weakness | CPT/HCPCS: A0425; A0429 ==

== ENCOUNTER 2021-05-31 08:00 | Emergency (ER) | payer OTHER ==
[2021-05-31] MEDS ORDERED: KETOROLAC 60 MG/2 ML VIAL IM STA (08:41)
[2021-05-31] MEDS ORDERED: HYDROmorphone 1 MG/ML CARPUJECT IM STA (08:41)
--- NOTE | 2021-05-31 08:44 | ED Physician Documentation ---
History of Present Illness - Stated complaint Stated Complaint: BACK PX - Chief complaint Chief Complaint: Back Pain - History obtained from History obtained from: Patient - Additonal information Additional information: Patient comes emergency department chief complaint of back pain since injury 6 days ago. Patient states that he was getting down to clean his toilet when he suddenly noticed a strain in his low back, just to the left of his spine. Patient states that he was able to produce including, but had to do so on his hands and knees. 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 He took the next 2 days off and try taking both methocarbamol and cyclobenzaprine, with no relief, other than getting a little sleep from the drowsiness. Patient states he went to work the next 2 nights, which included the night before last, and had to leave 3 hours into his shift both times, secondary to worsening back pain. The patient states that he has been able to control his bowels and bladder without difficulty, but that he has had some occasional numbness and weakness in his legs if he gets a spasm. Patient has a history of occasional back issues before, but no chronic diagnosis. He has never had to have an MRI for anything. No other complaints at this time. Review of Systems Ten Systems: 10 systems reviewed and negative Constitutional: reports: Reviewed and negative Eyes: reports: Reviewed and negative Ears: reports: Reviewed and negative Nose: reports: Reviewed and negative Throat: reports: Reviewed and negative Cardiac: reports: Reviewed and negative Respiratory: reports: Reviewed and negative GI: reports: Reviewed and negative : reports: Reviewed and negative Skin: reports: Reviewed and negative Musculoskeletal: reports: Back pain Neurologic: reports: Reviewed and negative Psychiatric: reports: Reviewed and negative Endocrine: reports: Reviewed and negative Immunocompromised: reports: Reviewed and negative PD PAST MEDICAL HISTORY - Past Medical History Past Medical History: Yes Cardiovascular: Hypertension, High cholesterol Respiratory: None Neuro: None Endocrine/Autoimmune: Type 2 diabetes GI: GERD : None HEENT: None Psych: None Musculoskeletal: None Derm: None - Past Surgical History Past Surgical History: Yes General: Cholecystectomy Ortho: Other - Present Medications Home Medications: Ambulatory Orders Medication Instructions Recorded Confirmed Aspirin [Aspir 81] 81 mg PO DAILY 03/03/14 05/31/21 Atorvastatin Calcium 80 mg PO QPM 04/22/15 05/31/21 Lisinopril 10 mg PO DAILY 04/23/15 05/31/21 Loratadine 10 mg PO DAILY PRN 04/23/15 05/31/21 Metformin HCl [Metformin HCl ER] 1,000 mg ORAL BID 06/15/19 05/31/21 Empagliflozin [Jardiance] 10 mg PO DAILY 05/31/21 05/31/21 Folic Acid 0.4 mg PO DAILY 05/31/21 05/31/21 Ibuprofen [Motrin] 600 mg PO Q8HR PRN 05/31/21 05/31/21 Ibuprofen [Motrin] 800 mg PO Q8H PRN #30 tablet 05/31/21 Oxycodone HCl/Acetaminophen 1 - 2 each PO Q6H PRN #14 tablet 05/31/21 [Percocet 5-325 mg Tablet] - Allergies Allergies/Adverse Reactions: Allergies Allergy/AdvReac Type Severity Reaction Status Date / Time No Known Drug Allergies Allergy Verified 05/31/21 08:04 - Social History Does the pt smoke?: No Smoking Status: Former smoker Does the pt drink ETOH?: Yes Does the pt have substance abuse?: No - Immunizations Immunizations are current?: Yes - POLST Patient has POLST: No PD ED PE NORMAL - Vitals Vital signs reviewed: Yes - General General: Alert and oriented X 3, No acute distress (Patient appears moderately uncomfortable.), Well developed/nourished - HEENT HEENT: Atraumatic, PERRL, EOMI, Moist mucous membranes - Neck Neck: Supple, no meningeal sign - Cardiac Cardiac: RRR, No murmur, Strong equal pulses - Respiratory Respiratory: No respiratory distress, Clear bilaterally - Abdomen Abdomen: Soft, Non tender, Non distended - Back Back: No spinal TTP, Other (Patient has tenderness along the left lumbar paraspinal musculature. No bony step-off.) - Derm Derm: Normal color, Warm and dry, No rash - Extremities Extremities: No deformity, No edema, No calf tenderness / cord - Neuro Neuro: Alert and oriented X 3, host coordinator 2-12 intact, No motor deficit, No sensory deficit, Normal speech - Psych Psych: Normal mood, Normal affect Results - Vitals Vitals: Vital Signs - 24 hr 05/31/21 05/31/21 05/31/21 08:05 08:23 09:51 Temperature 36.9 C 36.9 C Heart Rate 94 94 70 Respiratory 18 18 16 Rate Blood Pressure 157/97 H 157/87 H 148/100 H O2 Saturation 98 97 97 Oxygen O2 Source Room air - Rads (name of study) Lumbar spine x-ray series Radiology: Final report received, EMP read indepedently, See rad report (No acute disease) PD MEDICAL DECISION MAKING - ED course Complexity details: reviewed results, re-evaluated patient, considered differential, d/w patient ED course: The patient was worked up with lumbar spine x-ray, as well as treated symptomatically with Toradol and Dilaudid. The patient was found to be feeling much better after symptomatic treatment, and his x-ray series was unremarkable. We have discussed the need for follow-up and the usual indications for return. We have discussed symptomatic management at home. Departure - Departure Disposition: 01 Home, Self Care Clinical Impression: Muscle spasm Low back strain Qualifiers: Encounter type: initial encounter Qualified Code(s): S39.012A - Strain of muscle, fascia and tendon of lower back, initial encounter Condition: Stable Instructions: ED Sprain Strain Lumbar Prescriptions: Ibuprofen [Motrin] 800 mg PO Q8H PRN #30 tablet PRN Reason: PAIN &/OR FEVER Oxycodone HCl/Acetaminophen [Percocet 5-325 mg Tablet] 1 - 2 each PO Q6H PRN #14 tablet PRN Reason: pain Comments: Your x-rays look good. There is no evidence of any malalignment or break in the bones of your low back. Your injury and ongoing symptoms are most consistent with a muscle strain and subsequent spasm. You have been prescribed both a narcotic pain medication and an anti-inflammatory to help with the symptoms until the injury begins to heal. At this point in time, there is no evidence of a serious back injury that should cause you any sort of serious or lasting effects, but a muscle/soft tissue strain can take several weeks to heal. You should follow-up with your primary doctor in a couple of weeks if you are not noticing any improvement at all in the symptoms. Your prescriptions have been electronically transmitted to [facility] in [place]. Discharge Date/Time: 05/31/21 10:29
[2021-05-31 09:52] VITALS: BP 148/100
--- NOTE | 2021-05-31 10:40 | XRAY Report ---
PROCEDURE: Lumbar Spine 2 View INDICATIONS: injury/pain TECHNIQUE: 2 views of the lumbar spine were acquired. COMPARISON: None. FINDINGS: Bones: 5 [id number] vertebrae are present. There is minimal retrolisthesis at L1-L2, L2-L3, an d L3-L4. There is mild facet arthropathy at L5-S1. No vertebral body compression fractures. No other definite fracture identified. No suspicious bony lesions. Soft tissues: Overlying bowel gas pattern is normal. No suspicious soft tissue calcifications. IMPRESSION: 1. No definite fracture or subluxation. 2. Mild facet arthropathy at L5-S1. 3. Minimal multilevel retrolisthesis. Reviewed by: Stan Babin MD on 05/31/2021 9:39 AM [facility] Approved by: Stan Babin MD on 05/31/2021 9:39 AM [facility] Station ID: [id number]
== END 2021-05-31 10:29 | disposition home or self-care (01) ==
LOC: EDUNIT# → ED 08:00
DX: S39.012A Strain of muscle, fascia and tendon of lower back, initial encounter (principal); X58.XXXA Exposure to other specified factors, initial encounter; Y93.E9 Activity, other interior property and clothing maintenance; I10 Essential (primary) hypertension; E11.9 Type 2 diabetes mellitus without complications; Z79.84 Long term (current) use of oral hypoglycemic drugs; Z87.891 Personal history of nicotine dependence
CPT/HCPCS: 72100; 96372; 99284; J1170

== ENCOUNTER 2021-07-14 20:04 | Emergency (ER) | payer OTHER ==
[2021-07-14 20:12] VITALS: BP 135/94
--- NOTE | 2021-07-14 20:23 | ED Physician Documentation ---
PD HPI LOWER EXT INJURY - Stated complaint Stated Complaint: TWISTED LT KNEE FELT POP - Chief complaint Chief Complaint: Trauma Ext - History obtained from History obtained from: Patient - Additional information Additional information: He has a history of an ACL issue on the right that was never surgically repaired. Tonight he was vacuuming at home and his foot got caught on the carpet and the right leg deviated medially and he developed medial joint line pain when walking. It is painless at rest. No other injuries. Review of Systems Constitutional: reports: Reviewed and negative Eyes: reports: Reviewed and negative Ears: reports: Reviewed and negative Nose: reports: Reviewed and negative Throat: reports: Reviewed and negative Cardiac: reports: Reviewed and negative Respiratory: reports: Reviewed and negative PD PAST MEDICAL HISTORY - Past Medical History Cardiovascular: Hypertension, High cholesterol Respiratory: None Neuro: None Endocrine/Autoimmune: Type 2 diabetes GI: GERD : None HEENT: None Psych: None Musculoskeletal: None Derm: None - Past Surgical History Past Surgical History: Yes General: Cholecystectomy Ortho: Other - Present Medications Home Medications: Ambulatory Orders Medication Instructions Recorded Confirmed Aspirin [Aspir 81] 81 mg PO DAILY 03/03/14 05/31/21 Atorvastatin Calcium 80 mg PO QPM 04/22/15 05/31/21 Lisinopril 10 mg PO DAILY 04/23/15 05/31/21 Loratadine 10 mg PO DAILY PRN 04/23/15 05/31/21 Metformin HCl [Metformin HCl ER] 1,000 mg ORAL BID 06/15/19 05/31/21 Empagliflozin [Jardiance] 10 mg PO DAILY 05/31/21 05/31/21 Folic Acid 0.4 mg PO DAILY 05/31/21 05/31/21 Ibuprofen [Motrin] 600 mg PO Q8HR PRN 05/31/21 05/31/21 Ibuprofen [Motrin] 800 mg PO Q8H PRN #30 tablet 05/31/21 Oxycodone HCl/Acetaminophen 1 - 2 each PO Q6H PRN #14 tablet 05/31/21 [Percocet 5-325 mg Tablet] - Allergies Allergies/Adverse Reactions: Allergies Allergy/AdvReac Type Severity Reaction Status Date / Time No Known Drug Allergies Allergy Verified 07/14/21 20:12 - Social History Does the pt smoke?: No Smoking Status: Former smoker Does the pt drink ETOH?: Yes Does the pt have substance abuse?: No - Immunizations Immunizations are current?: Yes - POLST Patient has POLST: No PD ED PE NORMAL - Vitals Vital signs reviewed: Yes - General General: Alert and oriented X 3, No acute distress - Extremities Extremities: Other (Mild tenderness over the medial joint line of the right knee. Possible mild effusion. No other bony tenderness. All of the ligamentous testing is intact but he does have pain with MCL testing.) - Neuro Neuro: Alert and oriented X 3, Normal speech Results - Vitals Vitals: Vital Signs - 24 hr 07/14/21 07/14/21 07/14/21 20:08 21:10 21:18 Temperature 35.9 C L Heart Rate 99 72 Respiratory 18 16 Rate Blood Pressure 135/94 H O2 Saturation 99 99 Oxygen O2 Source Room air - Rads (name of study) 4 view x-ray of the right knee Radiology: EMP read contemporaneously (Mild to moderate tricompartmental osteoarthritis of the right knee with more prominence in the medial femoral- tibial compartment with small effusion) Departure - Departure Disposition: 01 Home, Self Care Clinical Impression: MCL sprain of right knee Qualifiers: Encounter type: initial encounter Qualified Code(s): S83.411A - Sprain of medial collateral ligament of right knee, initial encounter Condition: Good Record reviewed to determine appropriate education?: Yes Instructions: ED Sprain Knee Follow-Up: [facility] [Provider Group] Comments: As discussed, the x-rays of your right knee show tricompartmental osteoarthritis which the radiologist feels is "mild to moderate." And a small effusion. You can immobilize the knee with the implements you have at home if you feel like that is helpful. If it continues to have issues follow-up with the orthopedic surgeon for further evaluation and treatment. Discharge Date/Time: 07/14/21 21:19
--- NOTE | 2021-07-14 21:03 | XRAY Report ---
PROCEDURE: Knee 4 View RT INDICATIONS: KNEE INJ TECHNIQUE: 4 views of the right knee(s) were acquired. COMPARISON: None. FINDINGS: Bones: No fractures or dislocations. No suspicious bony lesions. Mild to moderate tricompartmental osteoarthritis is seen more prominent in medial femoral tibial compartment. Soft tissues: Small to moderate suprapatellar joint effusion is seen. No suspicious soft tissue calc ifications. IMPRESSION: No gross acute right knee fracture or dislocation. Mild to moderate tricompartmental ost eoarthritis more prominent in medial femoral tibial compartment. Small to moderate suprapatellar join t effusion. Reviewed by: Justin Shi MD on 07/14/2021 9:01 PM PST Approved by: Justin Shi MD on 07/14/2021 9:01 PM PST Station ID: [id number]
== END 2021-07-14 21:19 | disposition home or self-care (01) ==
LOC: ED 20:04
DX: S83.411A Sprain of medial collateral ligament of right knee, initial encounter (principal); X50.1XXA Overexertion from prolonged static or awkward postures, initial encounter; Y93.E3 Activity, vacuuming; Y92.009 Unspecified place in unspecified non-institutional (private) residence as the place of occurrence of the external cause; I10 Essential (primary) hypertension; E11.9 Type 2 diabetes mellitus without complications; Z79.4 Long term (current) use of insulin; Z87.891 Personal history of nicotine dependence
CPT/HCPCS: 99282; 99283

== ENCOUNTER 2021-09-14 09:40 | Outpatient (CLI) | payer OTHER ==
--- NOTE | 2021-09-14 15:28 | MRI Report ---
PROCEDURE: Knee RT W/O INDICATIONS: RIGHT KNEE PAIN, RIGHT KNEE INJURY TECHNIQUE: Noncontrast sagittal PD fast spin echo and T2 fast spin echo with fat saturation, sagittal 3-D gradie nt sequence with fat saturation; coronal T1 spin echo and PD fast spin echo with fat saturation, and axial PD fast spin echo with fat saturation through the knee. COMPARISON: None. FINDINGS: Image quality: Excellent. Menisci: There is a bucket-handle tear of the medial meniscus with displacement of the bucket-handle fragment into the intercondylar notch. Lateral meniscus is intact. Cruciate ligaments: The anterior cruciate ligament is not well seen, and is attenuated, possibly sec ondary to the adjacent bucket-handle fragment. Posterior cruciate ligament is intact. Medial structures: The medial collateral ligament appears intact. Visualized portions of the pes ans erinus tendons appear normal. No abnormal bursal fluid. Lateral structures: The lateral collateral ligament, long and short heads of the biceps femoris tend on appear intact. The popliteus tendon appears normal. Iliotibial band appears normal. Anterior structures: The quadriceps and patellar tendons appear intact. Mild T2 signal elevation wi thin the quadriceps and patellar tendons at the patellar insertion sites. Patellar alignment is hafsa l. No femoral trochlear dysplasia or ventral trochlear prominence. No edema in the infrapatellar fa t pad. Bones and cartilage: No bone marrow contusions or fractures. Mild subchondral degenerative marrow ed florentin within the mid/posterior weightbearing aspect of the medial femoral condyle. Mild tricompartmenta l periarticular osteophyte formation. Moderate degree cartilage loss diffusely overlies the weightbea ring aspects of the medial femoral condyle and medial tibial plateau. Focal moderate articular cartil age defect overlies lateral patellar apex measuring roughly 4 mm. Joint space: There is is a small knee joint effusion and a trace James's cyst. Normal appearing syn ovial plicae are incidentally noted. IMPRESSION: 1. Tricompartment loss or arthritis with associated articular cartilage loss. 2. Bucket-handle tear of medial meniscus. 3. Suboptimal evaluation of the anterior cruciate ligament. 4. Knee joint effusion and James's cyst. 5. Mild quadriceps and patellar tendinopathy. Reviewed by: Neftali Dinh MD on 09/14/2021 3:26 PM PDT Approved by: Neftali Dinh MD on 09/14/2021 3:26 PM PDT Station ID: [id number]
== END 2021-09-14 09:41 | disposition home or self-care (01) ==
LOC: DI 09:40
PROVIDERS: ATTEND Family Medicine
DX: M17.11 Unilateral primary osteoarthritis, right knee (principal); S83.211A Bucket-handle tear of medial meniscus, current injury, right knee, initial encounter; M71.22 Synovial cyst of popliteal space [Baker], left knee; M25.462 Effusion, left knee; M67.864 Other specified disorders of tendon, left knee

== ENCOUNTER 2022-05-24 07:43 | Emergency (ER) | payer OTHER ==
--- NOTE | 2022-05-24 08:10 | ED Physician Documentation ---
History of Present Illness - Stated complaint Stated Complaint: GEN WEAKNESS - Chief complaint Chief Complaint: General - History obtained from History obtained from: Patient - Additonal information Additional information: The patient comes to the emergency department with chief complaint of dry cough, body aches, and fevers up to 102 for the last few days. He states that his appetite has been decreased, but he has not been nauseated or vomiting. No diarrhea. He denies chest pain or abdominal pain. He is not short of breath but just feels fatigued. He does admit to not drinking enough water. No other complaints at this time. Review of Systems Ten Systems: 10 systems reviewed and negative Constitutional: reports: Fever, Chills, Myalgias, Fatigue, Sweats Eyes: reports: Reviewed and negative Ears: reports: Reviewed and negative Nose: reports: Reviewed and negative Throat: reports: Reviewed and negative Cardiac: reports: Reviewed and negative Respiratory: reports: Cough. denies: Dyspnea GI: reports: Reviewed and negative. denies: Nausea : reports: Reviewed and negative Skin: reports: Reviewed and negative Musculoskeletal: reports: Reviewed and negative Neurologic: reports: Reviewed and negative Psychiatric: reports: Reviewed and negative Endocrine: reports: Reviewed and negative Immunocompromised: reports: Reviewed and negative PD PAST MEDICAL HISTORY - Past Medical History Cardiovascular: Hypertension, High cholesterol Respiratory: None Neuro: None Endocrine/Autoimmune: Type 2 diabetes GI: GERD : None HEENT: None Psych: None Musculoskeletal: None Derm: None - Past Surgical History Past Surgical History: Yes General: Cholecystectomy Ortho: Other - Present Medications Home Medications: Ambulatory Orders Medication Instructions Recorded Confirmed Aspirin [Aspir 81] 81 mg PO DAILY 03/03/14 05/31/21 Atorvastatin Calcium 80 mg PO QPM 04/22/15 05/31/21 Lisinopril 10 mg PO DAILY 04/23/15 05/31/21 Loratadine 10 mg PO DAILY PRN 04/23/15 05/31/21 Metformin HCl [Metformin HCl ER] 1,000 mg ORAL BID 06/15/19 05/31/21 Empagliflozin [Jardiance] 10 mg PO DAILY 05/31/21 05/31/21 Folic Acid 0.4 mg PO DAILY 05/31/21 05/31/21 Ibuprofen [Motrin] 600 mg PO Q8HR PRN 05/31/21 05/31/21 Ibuprofen [Motrin] 800 mg PO Q8H PRN #30 tablet 05/31/21 Oxycodone HCl/Acetaminophen 1 - 2 each PO Q6H PRN #14 tablet 05/31/21 [Percocet 5-325 mg Tablet] Azithromycin [Zithromax] 0 mg PO DAILY #6 tablet 05/24/22 - Allergies Allergies/Adverse Reactions: Allergies Allergy/AdvReac Type Severity Reaction Status Date / Time No Known Drug Allergies Allergy Verified 05/24/22 07:51 - Social History Does the pt smoke?: No Smoking Status: Former smoker Does the pt drink ETOH?: Yes Does the pt have substance abuse?: No - Immunizations Immunizations are current?: Yes - POLST Patient has POLST: No PD ED PE NORMAL - Vitals Vital signs reviewed: Yes - General General: Alert and oriented X 3, No acute distress, Well developed/nourished, Other (The patient appears to feel mildly uncomfortable, but does not appear ill and certainly not toxic.) - HEENT HEENT: Atraumatic, PERRL, EOMI, Moist mucous membranes - Neck Neck: Supple, no meningeal sign - Cardiac Cardiac: RRR, No murmur, Strong equal pulses - Respiratory Respiratory: No respiratory distress, Clear bilaterally - Abdomen Abdomen: Soft, Non tender, Non distended - Derm Derm: Normal color, Warm and dry, No rash - Extremities Extremities: No deformity, No edema - Neuro Neuro: Alert and oriented X 3 - Psych Psych: Normal mood, Normal affect Results - Vitals Vitals: Vital Signs - 24 hr 05/24/22 05/24/22 07:44 07:54 Temperature 38.6 C H Heart Rate 101 H 103 H Respiratory 14 Rate Blood Pressure 126/88 H 136/89 H O2 Saturation 97 97 Oxygen O2 Source Room air - Rads (name of study) Chest x-ray Radiology: Final report received, EMP read indepedently, See rad report (Minimal streaky opacity at the lower lobes. Could represent scarring, atelectasis, or pneumonia.) PD MEDICAL DECISION MAKING - ED course Complexity details: reviewed results, re-evaluated patient, considered differential, d/w patient ED course: I discussed with the patient that his symptoms are very much in line with the flulike viral illnesses we have been seeing extensively in our emergency department and in the community, and I suspect a viral syndrome. The patient's vital signs are normal on my examination, other than his temperature still being somewhat elevated. His lungs are clear and he is not in any respiratory distress or any other distress, and overall, appears fairly well. I have sent a viral panel, which is pending at this time, and chest x-ray Was read by the radiologist as showing some Minimal streaky lower lobe findings which could represent Atelectasis or scarring, but pneumonia could also have the same appearance. The patient be started on antibiotics as a precaution. I discussed with the patient that he is not nauseated or vomiting, and needs to make the decision to drink enough water, even if this does not seem entirely appealing to him. The patient does not need IV fluids emergency department, but I have reminded him that it is his choice to drink water not to drink, and that he needs to determine to drink so that he stays hydrated while he is sick. We have discussed home management of the symptoms, as well as the usual indications for return. Departure - Departure Disposition: 01 Home, Self Care Clinical Impression: Viral syndrome Condition: Stable Instructions: ED Viral Syndrome Prescriptions: Azithromycin [Zithromax] 0 mg PO DAILY #6 tablet Comments: Your symptoms are very much consistent with the extensive number of viral illnesses we have been seeing in community members in the emergency department. Unfortunately, there is no specific remedy for these viral syndromes and it is just a matter of working through the symptoms while your body gets rid of the illness. You can help yourself by choosing to drink more fluids at home, and it is recommended that you take 8 to 10 cups of water per day while you are sick. You may also take Tylenol 650 mg every 4 hours and ibuprofen 600 mg every 6 ho urs, as needed for fever, aches, or other discomforts. Your chest x-ray shows some very minimal findings which most likely represent some collapse of air cells in the lower regions of your lungs, due to coughing. However, because there is a small chance this could represent a very small amount of pneumonia, we have treated you with antibiotics as a precaution. A prescription for the remainder of your antibiotics has been electronically transmitted to [facility] in [place], your pharmacy of choice on record. A viral panel is pending at this time, as we have discussed, and will come back in the next few hours. We will call you for any significant positive results. We do not call back negative results but if you would like to monitor online for your results, you may go to our hospital website at [email or web address], click on the "my [facility]" tab, and sign up for the patient portal.
[2022-05-24] MEDS: IBUPROFEN 600 MG TABLET PO STA (08:20)
--- NOTE | 2022-05-24 08:34 | XRAY Report ---
PROCEDURE: Chest 1 View X-Ray INDICATIONS: chest pain TECHNIQUE: One view of the chest was acquired. COMPARISON: Lung bases on CT abdomen pelvis 05/06/2020.. FINDINGS: Surgical changes and devices: None. Lungs and pleura: No pleural effusions or pneumothorax. No silhouetting. Minimal streaky opacity at the lower lobes. Mediastinum: Mediastinal contours appear normal. Heart size is normal. Bones and chest wall: No suspicious bony lesions. Overlying soft tissues appear unremarkable. IMPRESSION: Minimal streaky opacity at the lower lobes. This could represent atelectasis or scarring. Pneumonia c ould have a similar appearance. Reviewed by: Yuval Esquivel MD on 05/24/2022 8:33 AM [facility] Approved by: Yuval Esquivel MD on 05/24/2022 8:33 AM [facility] Station ID: [id number]
[2022-05-24 09:15] LABS: B. PARAPERTUSSIS- RESP PCR PAN NOT DETECTED; B. PERTUSSIS- RESP PCR PANEL NOT DETECTED; C. PNEUMONIAE- RESP PCR PANEL NOT DETECTED; CORONAVIRUS 229E-RESP PCR NOT DETECTED; CORONAVIRUS HKU1-RESP PCR NOT DETECTED; CORONAVIRUS NL63-RESP PCR NOT DETECTED; CORONAVIRUS OC43-RESP PCR NOT DETECTED; HUMAN METAPNEUMOVIRUS NOT DETECTED; INFLUENZA A H3- RESP PCR PANEL DETECTED; INFLUENZA B - RESP PCR PANEL NOT DETECTED; M. PNEUMONIAE- RESP PCR PANEL NOT DETECTED; PARAINFLUENZA VIRUS 1 NOT DETECTED; PARAINFLUENZA VIRUS 2 NOT DETECTED; PARAINFLUENZA VIRUS 3 NOT DETECTED; PARAINFLUENZA VIRUS 4 NOT DETECTED; RHINOVIRUS/ENTEROVIRUS NOT DETECTED; RSV- RESP PCR PANEL NOT DETECTED; SARS-CoV-2 -RESP PCR PANEL NOT DETECTED
[2022-05-24] MEDS: LIDOCAINE 1% 2 ML VIAL MC ONE (09:18)
[2022-05-24] MEDS: AZITHROMYCIN 250 MG TABLET PO STA (09:18)
[2022-05-24] MEDS: cefTRIAXone 1 GM VIAL IM STA (09:18)
[2022-05-24 09:33] VITALS: BP 115/89
== END 2022-05-24 09:37 | disposition home or self-care (01) ==
LOC: EDUNIT# → ED 07:43
DX: B34.9 Viral infection, unspecified (principal); Z87.891 Personal history of nicotine dependence; Z20.822 Contact with and (suspected) exposure to COVID-19
CPT/HCPCS: 71045; 87633; 96374; 99282; 99284; A9270

== ENCOUNTER → 2022-05-24 | Outpatient (CLI) | payer OTHER | END | disposition critical access hospital (66) | LOC: EMS 07:27 | DX: R05.9 Cough, unspecified (principal); R09.89 Other specified symptoms and signs involving the circulatory and respiratory systems; R50.9 Fever, unspecified; R52 Pain, unspecified | CPT/HCPCS: A0425; A0429 ==

== ENCOUNTER 2022-09-20 18:38 | Emergency (ER) | payer OTHER ==
[2022-09-20 18:53] LABS: BILIRUBIN,URINE NEGATIVE (NEGATIVE); GLUCOSE, URINE (UA) >=1000 mg/dL (NEGATIVE); KETONES,URINE (UA) NEGATIVE (NEGATIVE); LEUKOCYTE ESTERASE, URINE NEGATIVE (NEGATIVE); NITRITE,URINE NEGATIVE (NEGATIVE); OCCULT BLOOD,URINE NEGATIVE (NEGATIVE); PH,URINE 5.5 PH (5.0-7.5); PROTEIN,URINE NEGATIVE (NEGATIVE); UROBILINOGEN,URINE 0.2 (NORMAL) E.U./dL (NORMAL)
[2022-09-20 18:55] LABS: BASOPHILS % (AUTO) 0.5 %; EOSINOPHILS % (AUTO) 0.5 %; HCT - HEMATOCRIT 50.3 % (42.0-52.0); HGB - HEMOGLOBIN 16.7 g/dL (14.0-18.0); LYMPHOCYTES # (AUTO) 2.3 10^3/uL (1.5-3.5); LYMPHOCYTES % (AUTO) 27.3 %; MEAN CORPUSCULAR HEMOGLOBIN 29.8 pg (27.0-31.0); MEAN CORPUSCULAR HGB CONC 33.2 g/dL (32.0-36.0); MEAN CORPUSCULAR VOLUME 89.8 fL (80.0-94.0); MEAN PLATELET VOLUME 10.8 fL (7.4-11.4); MONOCYTES # (AUTO) 0.6 10^3/uL (0.0-1.0); MONOCYTES % (AUTO) 7.1 %; NEUTROPHILS # (AUTO) 5.5 10^3/uL (1.5-6.6); NEUTROPHILS % (AUTO) 64.2 %; PLT - PLATELET COUNT 197 10^3/uL (130-450); RED CELL DISTRIBUTION WIDTH 12.6 % (12.0-15.0); WHITE BLOOD COUNT 8.5 x10^3/uL (4.8-10.8)
[2022-09-20 18:57] LABS: CLARITY,URINE CLEAR (CLEAR)
[2022-09-20 19:08] LABS: ALBUMIN 4.9 g/dL (3.2-5.5); ALBUMIN/GLOBULIN RATIO 1.7 (1.0-2.2); BILIRUBIN,TOTAL 0.9 mg/dL (0.2-1.0); CALCIUM 9.6 mg/dL (8.5-10.3); CREATININE 0.8 mg/dL (0.6-1.2); POTASSIUM 3.7 mmol/L (3.5-5.0); TOTAL PROTEIN 7.8 g/dL (6.7-8.2)
[2022-09-20 19:57] VITALS: BP 136/92
--- NOTE | 2022-09-20 21:12 | ED Physician Documentation ---
PD HPI BACK PAIN - Stated complaint Stated Complaint: LOWER BACK PX - Chief complaint Chief Complaint: Abd Pain - History obtained from History obtained from: Patient - Additional information Additional information: HPI from patient. Patient complains of low back pain across his lower back and radiating around both flanks. He says the pain initially was limited to the left low back approximately one week ago but since earlier today the pain has spread across the back and both flanks as noted above. The pain is distinctly worse with movement.He denies loss of bowel/bladder continence. Denies numbness, weakness.He denies injury.He says he has a history of kidney stones and feels the pain has some similarity to episodes of renal colic he has had in the past. Review of Systems Constitutional: denies: Fever GI: denies: Abdominal Pain, Nausea, Vomiting : denies: Dysuria, Frequency, Unable to Void, Incontinent, Hematuria Skin: denies: Rash Musculoskeletal: reports: Back pain PD PAST MEDICAL HISTORY - Past Medical History Cardiovascular: Hypertension, High cholesterol Respiratory: None Neuro: None Endocrine/Autoimmune: Type 2 diabetes GI: GERD : None HEENT: None Psych: None Musculoskeletal: None Derm: None - Past Surgical History Past Surgical History: Yes General: Cholecystectomy Ortho: Other - Present Medications Home Medications: Ambulatory Orders Medication Instructions Recorded Confirmed Aspirin [Aspir 81] 81 mg PO DAILY 03/03/14 05/31/21 Atorvastatin Calcium 80 mg PO QPM 04/22/15 05/31/21 Lisinopril 10 mg PO DAILY 04/23/15 05/31/21 Loratadine 10 mg PO DAILY PRN 04/23/15 05/31/21 Metformin HCl [Metformin HCl ER] 1,000 mg ORAL BID 06/15/19 05/31/21 Empagliflozin [Jardiance] 10 mg PO DAILY 05/31/21 05/31/21 Folic Acid 0.4 mg PO DAILY 05/31/21 05/31/21 Ibuprofen [Motrin] 600 mg PO Q8HR PRN 05/31/21 05/31/21 Ibuprofen [Motrin] 800 mg PO Q8H PRN #30 tablet 05/31/21 Oxycodone HCl/Acetaminophen 1 - 2 each PO Q6H PRN #14 tablet 05/31/21 [Percocet 5-325 mg Tablet] Azithromycin [Zithromax] 0 mg PO DAILY #6 tablet 11/28/22 Cyclobenzaprine [Flexeril] 10 mg PO TID PRN #20 tablet 09/20/22 Oxycodone HCl/Acetaminophen 1 - 2 each PO Q6H PRN #14 tablet 09/20/22 [Percocet 5-325 mg Tablet] - Allergies Allergies/Adverse Reactions: Allergies Allergy/AdvReac Type Severity Reaction Status Date / Time No Known Drug Allergies Allergy Verified 09/20/22 18:41 - Social History Does the pt smoke?: No Smoking Status: Never smoker Does the pt drink ETOH?: Yes Does the pt have substance abuse?: No - Immunizations Immunizations are current?: Yes - POLST Patient has POLST: No PD ED PE NORMAL - Vitals Vital signs reviewed: Yes - General General: Alert and oriented X 3, No acute distress (NAD at rest but obvious painful distress with movement involving lower back (such as sitting up, turning to side)), Well developed/nourished - Abdomen Abdomen: Soft, Non tender - Back Back: No CVA TTP, No spinal TTP - Derm Derm: Normal color, Warm and dry, No rash - Extremities Extremities: No edema - Neuro Neuro: No motor deficit (5/5 bilateral dorsi/plantarflexion), No sensory deficit (LTS intact BLE) Results - Vitals Vitals: Vital Signs - 24 hr 09/20/22 09/20/22 18:41 18:43 Temperature 36.5 C Heart Rate 90 79 Respiratory 16 16 Rate Blood Pressure 140/90 H 136/92 H O2 Saturation 97 95 Oxygen O2 Source Room air - Labs Labs: Laboratory Tests 09/20/22 09/20/22 09/20/22 18:48 18:50 18:50 WBC 8.5 RBC 5.60 Hgb 16.7 Hct 50.3 MCV 89.8 MCH 29.8 MCHC 33.2 RDW 12.6 Plt Count 197 MPV 10.8 Neut # (Auto) 5.5 Lymph # (Auto) 2.3 Mason # (Auto) 0.6 Eos # (Auto) 0.0 Baso # (Auto) 0.0 Absolute Nucleated RBC 0.00 Nucleated RBC % 0.0 Sodium 138 Potassium 3.7 Chloride 101 Carbon Dioxide 29 Anion Gap 8.0 BUN 19 Creatinine 0.8 Estimated GFR (MDRD) 98 Glucose 140 H Calcium 9.6 Total Bilirubin 0.9 AST 23 ALT 42 Alkaline Phosphatase 76 Total Protein 7.8 Albumin 4.9 Globulin 2.9 Albumin/Globulin Ratio 1.7 Lipase 47 Urine Color YELLOW Urine Clarity CLEAR Urine pH 5.5 Ur Specific Lambert >=1.030 H Urine Protein NEGATIVE Urine Glucose (UA) >=1000 H Urine Ketones NEGATIVE Urine Occult Blood NEGATIVE Urine Nitrite NEGATIVE Urine Bilirubin NEGATIVE Urine Urobilinogen 0.2 (NORMAL) Ur Leukocyte Esterase NEGATIVE Ur Microscopic Review NOT INDICATED Urine Culture Comments NOT INDICATED PD Medical Decision Making - ED course Complexity details: considered differential, d/w patient ED course: CBC is normal, and ER abdominal panel is normal except for blood sugar of 140. His urinalysis has glucose urea as well as a specific gravity of greater than 1.030; there are no other abnormalities on the urinalysis including hematuria. Given the lack of hematuria on UA, the bilateral nature of the pain, and the distinct worsening with movement, renal colic is an unlikely cause of his discomfort. There is no abdominal tenderness on exam and no recent injury; emergent imaging is not indicated at this time. I suspect musculoskeletal etiology of his pain, such as disc herniation or spinal stenosis. He is given 10 mg p.o. Decadron as a one-time dose, he is also given IM Dilaudid and IM Toradol. He is provided a take-home pack of Percocet and flexeril and I advised him to take the first dose of the flexeril now. Prescriptions for Percocet and Flexeril are electronically submitted to [facility] pharmacy in [place]. Return precautions were discussed. I advised him to contact his primary care provider to arrange for next available appointment for reevaluation. I am prescribing a short course of short-acting opioid pain medication for this patient. I have reviewed the patients [employer] and no concerning findings were noted. I have discussed that the opioids are for short term therapy only, and will not be refilled from the ED. Departure - Departure Disposition: 01 Home, Self Care Clinical Impression: Back pain Qualifiers: Back pain location: low back pain Chronicity: acute Back pain laterality: bilateral Sciatica presence: without sciatica Qualified Code(s): M54.50 - Low back pain, unspecified Condition: Good Instructions: ED Neck Back Pain General Follow-Up: RAMSES TOMLINSON MD [Primary Care Provider] - Within 1 week Prescriptions: Cyclobenzaprine [Flexeril] 10 mg PO TID PRN #20 tablet PRN Reason: Spasms Oxycodone HCl/Acetaminophen [Percocet 5-325 mg Tablet] 1 - 2 each PO Q6H PRN #14 tablet PRN Reason: pain Comments: Your blood tests were essentially normal (as we discussed, your blood sugar was flagged as abnormally high at 140 which is not a concerning result considering that you are diabetic and your body is stressed due to the pain). Your urinalysis did not have any findings to suggest infection nor was there any blood in the urine; the lack of blood in the urine is helpful because the majority of patients experiencing kidney stone pain will have microscopic blood in the urine. While this does not rule out a kidney stone, it makes it less likely. Additionally, as we discussed, the fact that you are having pain on both sides of your back and that the pain is distinctly worse with movement would also argue against the pain being due to renal colic/kidney stone pain. I suspect your pain is due to a musculoskeletal back problem such as a herniated disc or spinal stenosis. These diagnoses typically require testing outside of the ER such as MRI. Prescriptions for Percocet (opiate/narcotic pain medication) and cyclobenzaprine (muscle relaxant) have been electronically submitted to the [facility] pharmacy in [place]. Contact your primary care provider's office in the morning to arrange for next available appointment for reevaluation I am prescribing a short course of narcotic pain medication for you. These are potentially dangerous and addictive medications that should be used carefully. These medications may constipate you. Take an [id number] stool softener (docusate) twice daily with plenty of water while taking these medications. If you go 24 hours without a bowel movement, take [id number] miralax, per package instructions. Do not drink or drive while taking these medications. If you received narcotic or sedating medications while in the emergency department, do not drive for 24 hours. Store this medication in a safe, secure place and out of reach of children. It is a violation of federal law to give or sell this medication to another person or to use in a manner other than prescribed. The ED will not refill narcotic prescriptions, including prescriptions lost or stolen. To dispose of unwanted medications: 1. [facility] [address] in [place] has a medication drop box. They accept prescription medications (in pill form) Tuesday through Tuesday 9:00 a.m. to 5:00 p.m. 2. [facility] accepts prescription medications (in pill form only) for disposal year round. Call for more information. 3. Contact the [facility] for the next [facility] sponsored prescription drug collection event. , [phone], or [phone]; Forms: Activity restrictions Discharge Date/Time: 09/20/22 21:48
[2022-09-20] MEDS ORDERED: HYDROmorphone 1 MG/ML CARPUJECT IVP STA (21:29)
[2022-09-20] MEDS ORDERED: DEXAMETHASONE 10 MG/ML VIAL IVP STA (21:29)
[2022-09-20] MEDS ORDERED: KETOROLAC 15 MG/ML VIAL IVP STA (21:29)
[2022-09-20] MEDS ORDERED: CYCLOBENZAPRINE 10 MG Prepack 2 PO PRN (21:29)
[2022-09-20] MEDS ORDERED: oxyCODONE/ACET 5/325 Prepack 4 PO STA (21:30)
== END 2022-09-20 21:48 | disposition home or self-care (01) ==
LOC: ED 18:38
DX: M54.50 Low back pain, unspecified (principal); I10 Essential (primary) hypertension; E78.00 Pure hypercholesterolemia, unspecified; E11.9 Type 2 diabetes mellitus without complications; Z79.82 Long term (current) use of aspirin; Z79.84 Long term (current) use of oral hypoglycemic drugs; Z79.899 Other long term (current) drug therapy
CPT/HCPCS: 36415; 80053; 81003; 83690; 85025; 96374; 99283; 99284; J1170; 81001; 87086

== ENCOUNTER 2022-10-25 08:37 | Outpatient (CLI) | payer OTHER ==
--- NOTE | 2022-10-25 16:54 | MRI Report ---
PROCEDURE: LUMBAR SPINE WO INDICATIONS: LOW BACK PAIN TECHNIQUE: Noncontrast sagittal T1 spin echo and T2 fast echo, sagittal STIR, axial T1 and T2 fast spin echo thr ough the lumbar spine. In cases with scoliosis, additional coronal T2 fast spin echo may be performe d. COMPARISON: Plain films dated 05/31/2021 FINDINGS: Image quality: Excellent. Alignment and Curvature: 5 lumbar type vertebral bodies are present by plain film. There is loss of n ormal lumbar lordosis. 2 mm of retrolisthesis of L1 on L2 and L2 on L3. Bone Marrow: Marrow is of normal overall signal. No acute vertebral body compression fractures. T1 2 hemangioma. Mild reactive signal throughout the endplates of the lumbar lower thoracic spine, most prominent at L1-L2 and L2 on L3. Spinal Cord: Conus medullaris terminates at the L1 level. Visualized cord demonstrates normal signa l and size. Paraspinous Soft Tissues: No paravertebral masses. T12-L1: Mild disc desiccation and diffuse disc bulge. Mild facet and ligament flavum hypertrophy. Mi ld canal stenosis. No foraminal stenosis. L1-L2: Mild disc desiccation and diffuse disc bulge. Mild facet and ligament flavum hypertrophy. M ild epidural lipomatosis. Mild canal stenosis. Mild bilateral foraminal stenosis. L2-L3: Mild disc desiccation and diffuse disc bulge. Mild facet hypertrophy. Mild epidural lipomat osis. Mild canal stenosis. Mild bilateral foraminal stenosis. L3-L4: Mild disc desiccation and diffuse disc bulge. Mild facet and ligament flavum hypertrophy. Mi ld epidural lipomatosis. Mild canal stenosis. Mild bilateral foraminal stenosis. L4-L5: Mild disc height loss and desiccation. Mild diffuse disc bulge with superimposed small broad -based left posterolateral protrusion. Mild facet and ligament flavum hypertrophy. Mild canal stenosi s. Mild bilateral foraminal stenosis. Mild posterior deviation of the left L5 nerve root within the l ateral recess. L5-S1: Mild bilateral facet hypertrophy. No significant canal stenosis. Mild bilateral foraminal st enosis. IMPRESSION: 1. Multilevel degenerative disc and facet disease, in addition to epidural lipomatosis and ligamentum flavum hypertrophy. 2. Mild multilevel canal and foraminal stenoses. 3. Mild posterior deviation of the left L5 nerve root within the lateral recess at L4-L5. Recommend c orrelation with clinical symptoms to ascertain relevance of this finding. Reviewed by: Neftali Dinh MD on 10/25/2022 4:53 PM PDT Approved by: Neftali Dinh MD on 10/25/2022 4:53 PM PDT Station ID: [id number]
== END 2022-10-25 08:38 | disposition home or self-care (01) ==
LOC: DI 08:37
PROVIDERS: ATTEND Student in an Organized Health Care Education/Training Program
DX: M47.26 Other spondylosis with radiculopathy, lumbar region (principal); M51.16 Intervertebral disc disorders with radiculopathy, lumbar region; M48.061 Spinal stenosis, lumbar region without neurogenic claudication; E88.2 Lipomatosis, not elsewhere classified; G58.8 Other specified mononeuropathies

== ENCOUNTER 2023-11-03 12:50 | Outpatient (CLI) | payer OTHER ==
--- NOTE | 2023-11-03 16:35 | XRAY Report ---
PROCEDURE: Knee 4+V RT INDICATIONS: INSTABILITY OF RIGHT KNEE JOINT TECHNIQUE: 4 views of the knee(s) were acquired. COMPARISON: Right knee MRI 09/14/2021. FINDINGS: Bones: No fractures or dislocations. Mild joint space loss at the medial compartment. Small osteophy froilan. No suspicious bony lesions. Soft tissues: Small knee joint effusion. No suspicious soft tissue calcifications or masses. IMPRESSION: Mild right knee DJD. Reviewed by: Yuval Esquivel MD on 11/03/2023 4:15 PM PDT Approved by: Yuval Esquivel MD on 11/03/2023 4:15 PM PDT Station ID: [id number]
== END 2023-11-03 12:51 | disposition home or self-care (01) ==
LOC: DI 12:50
PROVIDERS: ATTEND Internal Medicine
DX: M25.361 Other instability, right knee (principal); M17.11 Unilateral primary osteoarthritis, right knee

== ENCOUNTER 2023-11-10 09:08 | Outpatient (CLI) | payer OTHER ==
[2023-11-10 09:18] LABS: BASOPHILS # (AUTO) 0.1 10^3/uL (0.0-0.1); BASOPHILS % (AUTO) 0.8 %; EOSINOPHILS # (AUTO) 0.1 10^3/uL (0.0-0.7); EOSINOPHILS % (AUTO) 2.2 %; HCT - HEMATOCRIT 49.9 % (42.0-52.0); HGB - HEMOGLOBIN 16.5 g/dL (14.0-18.0); LYMPHOCYTES # (AUTO) 2.3 10^3/uL (1.5-3.5); LYMPHOCYTES % (AUTO) 35.7 %; MEAN CORPUSCULAR HEMOGLOBIN 29.4 pg (27.0-31.0); MEAN CORPUSCULAR HGB CONC 33.1 g/dL (32.0-36.0); MEAN CORPUSCULAR VOLUME 88.8 fL (80.0-94.0); MEAN PLATELET VOLUME 11.3 fL (7.4-11.4); MONOCYTES # (AUTO) 0.6 10^3/uL (0.0-1.0); MONOCYTES % (AUTO) 8.6 %; NEUTROPHILS # (AUTO) 3.4 10^3/uL (1.5-6.6); NEUTROPHILS % (AUTO) 52.5 %; PLT - PLATELET COUNT 167 10^3/uL (130-450); RED BLOOD COUNT 5.62 10^6/uL (4.70-6.10); RED CELL DISTRIBUTION WIDTH 12.2 % (12.0-15.0); WHITE BLOOD COUNT 6.4 x10^3/uL (4.8-10.8)
[2023-11-10 09:34] LABS: ALBUMIN 4.6 g/dL (3.2-5.5); ALBUMIN/GLOBULIN RATIO 1.7 (1.0-2.2); ALKALINE PHOSPHATASE 89 IU/L (42-121); ALT ALANINE AMINOTRANSFERASE 38 IU/L (10-60); AST ASPARTATE AMINOTRANSFERASE 20 IU/L (10-42); BILIRUBIN,TOTAL 0.7 mg/dL (0.2-1.0); BUN - BLOOD UREA NITROGEN 18 mg/dL (6-20); CALCIUM 10.2 mg/dL (8.5-10.3); CARBON DIOXIDE - CO2 26 mmol/L (21-32); CHLORIDE 106 mmol/L (101-111); CHOL/HDL RATIO 3.3 (<5.0); CHOLESTEROL 124 mg/dL; CREATININE 0.9 mg/dL (0.6-1.3); GFR - MDRD 85 (>89); GLUCOSE 158 mg/dL (74-104); HDL CHOLESTEROL 38 mg/dL; LDL CHOLESTEROL,CALCULATED 53 mg/dL; LDL/HDL RATIO 1.4 (<3.6); POTASSIUM 4.4 mmol/L (3.5-4.5); SODIUM 138 mmol/L (135-145); TOTAL PROTEIN 7.3 g/dL (6.4-8.9); TRIGLYCERIDES 165 mg/dL (48-352); VLDL CHOLESTEROL 33 mg/dL
[2023-11-10 09:36] LABS: CREATININE,URINE 69.6 mg/dL; MICROALBUMIN,URINE 1.6 mg/dL
[2023-11-10 10:46] LABS: ESTIMATED AVERAGE GLUCOSE 169 mg/dL (70-100); HEMOGLOBIN A1c% 7.5 % (4.27-6.07)
== END 2023-11-10 09:09 | disposition home or self-care (01) ==
LOC: LAB 09:08
PROVIDERS: ATTEND Internal Medicine
DX: I10 Essential (primary) hypertension (principal); E11.9 Type 2 diabetes mellitus without complications
CPT/HCPCS: 36415; 80053; 80061; 82043; 82570; 83036; 83721; 85025

== ENCOUNTER 2023-12-17 07:57 | Outpatient (CLI) | payer OTHER ==
--- NOTE | 2023-12-19 08:56 | MRI Report ---
PROCEDURE: Knee RT WO INDICATIONS: R KNEE INSTABILITY TECHNIQUE: Noncontrast sagittal PD fast spin echo and T2 fast spin echo with fat saturation, sagittal 3-D gradie nt sequence with fat saturation; coronal T1 spin echo and PD fast spin echo with fat saturation, and axial PD fast spin echo with fat saturation through the knee. COMPARISON: X-ray right knee, 11/03/2023, 07/14/2021. FINDINGS: Image quality: Excellent. Menisci: There is complex tear of the medial meniscus. A large bucket-handle type tear is present, in volving the anterior horn and body of the medial meniscus with a displaced meniscal fragment within t he intercondylar notch ("double PCL sign"). In addition, there is complex tear of the posterior horn the medial meniscus with both horizontal and radial components. The lateral meniscus demonstrates normal morphology and internal signal. The meniscal root ligaments appear intact. Cruciate ligaments: The anterior and posterior cruciate ligaments appear intact. There is mild muco id degeneration of ACL. Medial structures: The medial collateral ligament appears intact. The semimembranosus tendon insert ions and and meniscocapsular junction appear intact. Visualized portions of the pes anserinus tendon s appear normal. No abnormal bursal fluid. Lateral structures: The lateral collateral ligament, long and short heads of the biceps femoris tend on appear intact. The popliteus tendon appears normal. Iliotibial band appears normal. Anterior structures: The quadriceps and patellar tendons appear intact. There is low-grade quadrice ps tendons and patellar tendons. Patellar alignment is normal. No femoral trochlear dysplasia or solitario tral trochlear prominence. No edema in the infrapatellar fat pad. Bones and cartilage: No bone marrow contusions or fractures. Tricompartmental cartilage fibrillation with relatively preserved cartilage thickness. Full-thickness or near full-thickness cartilage fiss ures are present in the medial femorotibial compartment and patellofemoral compartment. Joint space: There is small knee joint fluid. There is a tiny James's cyst. Normal appearing synovi al plicae are incidentally noted. IMPRESSION: 1. Complex tear of the medial meniscus as described. A large bucket-handle tear is seen with a displa mary meniscal fragment within the intercondylar notch. 2. Low-grade quadriceps tendinitis and patellar tendinitis. 3. Osteoarthritic changes with full-thickness or near full-thickness cartilage fissures in the medial femorotibial compartment and patellofemoral compartment. 4. Small knee joint effusion. Reviewed by: Ana Odonnell MD on 12/19/2023 8:54 AM PDT Approved by: Ana Odonnell MD on 12/19/2023 8:54 AM PDT Station ID: [id number]
== END 2023-12-17 07:58 | disposition home or self-care (01) ==
LOC: DI 07:57
PROVIDERS: ATTEND Internal Medicine
DX: S83.231A Complex tear of medial meniscus, current injury, right knee, initial encounter (principal); S83.211A Bucket-handle tear of medial meniscus, current injury, right knee, initial encounter; M76.51 Patellar tendinitis, right knee; M17.11 Unilateral primary osteoarthritis, right knee; M25.461 Effusion, right knee